=== PATIENT | female | born 1950 | race Caucasian/White ===

== ENCOUNTER → 2018-01-31 | Outpatient (CLI) | payer MEDICARE, MEDICAID ==
[~2018-01-31] MED LIST: AMLO2.5T PO; AMLO5TAB2 PO; CLON0.1T12 PO; HYDR25TA6 PO; LEVO100T PO; LISI-170 PO
== END | disposition home or self-care (01) ==
LOC: RAD 13:46 → EDSTATUS 14:15
PROVIDERS: ATTEND Specialist
DX: N83.202 Unspecified ovarian cyst, left side (principal); D25.9 Leiomyoma of uterus, unspecified; N95.0 Postmenopausal bleeding
CPT/HCPCS: 76830

== ENCOUNTER → 2018-02-14 | Outpatient (CLI) | payer MEDICARE, MEDICAID | END | disposition home or self-care (01) | LOC: RAD 15:10 | PROVIDERS: ATTEND Internal Medicine Cardiovascular Disease | DX: M25.552 Pain in left hip (principal); D25.9 Leiomyoma of uterus, unspecified ==